=== PATIENT | male | born 1945 | race Caucasian/White ===

== ENCOUNTER → 2018-04-19 | Outpatient (CLI) | payer OTHER, MEDICARE | LOC: CIMAGING 11:32 | PROVIDERS: ATTEND Family Medicine | DX: S63.111A Subluxation of metacarpophalangeal joint of right thumb, initial encounter (principal) | CPT/HCPCS: 73110-PO ==

== ENCOUNTER 2018-09-09 12:48 | Emergency (ER) | payer OTHER, MEDICARE ==
[2018-09-09] MEDS ORDERED: NS 500 ML IV ONE (12:57)
[2018-09-09] MEDS ORDERED: IPRATROPIUM/ALBUTEROL 3 ML DEYVIAL IH ONE (12:57)
[2018-09-09 13:00] VITALS: BP 163/93
--- NOTE | 2018-09-09 13:40 | EDPHY ---
H & P Time Seen by Provider: 09/09/18 12:55 HPI/ROS: HPI Chronic shortness of breath. Coughed up some blood this morning. 72-year-old male by private vehicle. This patient has a formal diagnosis of mild COPD. He reports that for months if not years he has had shortness of breath and dyspnea made worse with exertion. He has been seen and evaluated at [facility]. He has also been [facility] and evaluated through [facility]. He has not been given a formal diagnosis. He states that he has been evaluated for pulmonary embolism as well as heart failure. His evaluations and testing have produce no formal diagnosis for his ongoing shortness of breath. He reports that this morning he had an episode of coughing and coughed up some blood which was mixed with sputum. He has not had any coughing since. He denies having any unusual shortness of breath that is worse than what he is had over the last 6 months. He denies fever. ROS: Constitutional: No fever, no chills. No weakness. Eyes: No discharge. No changes in vision. ENT: No sore throat. No nasal congestion or rhinorrhea. Respiratory: As above. Cardiac: No chest pain, no palpitations. Gastrointestinal: No abdominal pain, no vomiting, no diarrhea. Genitourinary: No hematuria. No dysuria or increased frequency with urination. Musculoskeletal: No back pain. No neck pain. No myalgias or arthralgias. Skin: No rashes. Neurological: No headache. No focal weakness or altered sensation. Past medical history: Obstructive sleep apnea which she uses BiPAP at night for , as above, multiple orthopedic surgeries, COPD, hypertension, prostate cancer with radiation treatment. Social history: Former smoker. Used to work as a [employer]. He is currently here by himself. No alcohol. Physical Exam: General Appearance: Alert, no distress. This patient is responding to questions appropriately and in full sentences. This patient appears well- hydrated and well-nourished. Eyes: Pupils equal and round no pallor or injection. No lid edema, erythema or injection. ENT, Mouth: Mucous membranes are moist. The pharyngeal tissues are unremarkable. No edema or swelling. No asymmetry suggestive of abscess. No erythema or exudates. No voice changes. No stridor on auscultation of his neck. No cervical, submandibular, submental lymphadenopathy. Respiratory: There are no retractions, lungs are clear to auscultation with good air movement bilaterally. No tachypnea. Cardiovascular: Regular rate and rhythm. No murmur. Neurological: Motor sensory function is grossly intact. Cranial nerves are normal. Gait is normal. Skin: Warm and dry, no rashes. Musculoskeletal: Neck is supple and nontender. Extremities are symmetrical. All joints range without pain or impingement. Psychiatric: No agitation. No depression. Database: EKG: Imaging: Chest x-ray PA and lateral; the cardiac mediastinal silhouette is unremarkable. No evidence of infiltrate or pneumothorax. Changes associated with COPD. No other acute cardiopulmonary disease process noted. Interpreted by me. Procedures: Emergency department course: Triage vital signs reviewed. He is moderately hypertensive. Vital signs are otherwise normal. No fever. Room air pulse oximetry is 96%. This patient appears very relaxed and well. I feel he most likely had a isolated coughing episode may have burst some capillaries in his posterior pharynx and had some blood mixed in with his sputum. 1:55 p.m., patient re-evaluated, I discussed the results of his chest x-ray with him. He is not dyspneic. He is completely asymptomatic. I explained that we could work him up much further. He does not want this done at this time. He is asking for referral to a instructor robotics. His instructor robotics has retired. This was Dr. Le. I feel this is reasonable. He can easily return to the emergency department if his condition worsens. He has had ongoing dyspnea, worse with exertion for months now on thorough investigation of this. I discussed follow-up with him. Return to emergency department precautions were thoroughly reviewed. All of his questions were answered. He was discharged from the emergency department in good condition. Differential Diagnosis: The differential diagnosis on this patient includes but is not limited to bronchitis. Tuberculosis, pulmonary embolism, congestive heart failure exacerbation, pneumonia, serious bacterial infection unlikely. This represents a partial list of diagnoses considered. These considerations are based on history, physical exam, past history, reassessment and diagnostic testing. Smoking Status: Never smoked Constitutional: Initial Vital Signs Temperature (C) 36.6 C 09/09/18 12:54 Heart Rate 64 09/09/18 12:54 Respiratory Rate 16 09/09/18 12:54 Blood Pressure 163/93 H 09/09/18 12:54 O2 Sat (%) 96 09/09/18 12:54 O2 Delivery Mode Room Air Allergies/Adverse Reactions: No Known Allergies Allergy (Verified 09/09/18 13:01) Home Medications: Medication Instructions Recorded Aspirin 81mg (*) 02/28/18 Lisinopril 02/28/18 Ursodiol 02/28/18 amLODIPine BESYLATE [Norvasc 10 mg 10 mg PO DAILY #60 tab 02/28/18 (*)] Medical Decision Making - Diagnostics Imaging Results: Imaging Impressions Chest X-Ray 09/09/18 12:58 Impression: Underlying hyperinflation compatible with COPD, associated with bilateral lower lung interstitial thickening, without acute abnormality.. Departure - Departure Disposition: Home, Routine, Self-Care Clinical Impression: Dyspnea, Cough with hemoptysis Condition: Good Instructions: Hemoptysis (ED), Dyspnea (ED) Additional Instructions: Read and follow provided instructions. Follow-up with pulmonology, Dr. Juan Carlos Dudley, as discussed for re-evaluation and ongoing management of your shortness of breath. Call his office this afternoon to schedule an appointment. Explain this is for an emergency department follow- up. Take your medication as prescribed. Return to the emergency department for worsening symptoms, worsening shortness of breath, coughing up blood, fever, chest pain or other serious concerns. Referrals: Williams Dudley MD [Medical Doctor] - As per Instructions
== END 2018-09-09 13:50 | disposition home or self-care (01) ==
LOC: CED 12:48
DX: R04.2 Hemoptysis (principal); R06.00 Dyspnea, unspecified; J44.9 Chronic obstructive pulmonary disease, unspecified; G47.33 Obstructive sleep apnea (adult) (pediatric); I10 Essential (primary) hypertension; Z85.46 Personal history of malignant neoplasm of prostate; Z92.3 Personal history of irradiation; Z87.891 Personal history of nicotine dependence
CPT/HCPCS: 71046-PO; 99284-ER

== ENCOUNTER → 2018-11-28 | Outpatient (CLI) | payer OTHER, MEDICARE | LOC: BHFA 14:00 | PROVIDERS: ATTEND Internal Medicine Cardiovascular Disease | DX: I44.7 Left bundle-branch block, unspecified (principal); R06.02 Shortness of breath | CPT/HCPCS: 78452; 93017; A9500; J2785 ==

== ENCOUNTER → 2018-12-14 | Outpatient (CLI) | payer OTHER, MEDICARE | LOC: BHCLAF 10:00 | PROVIDERS: ATTEND Internal Medicine Interventional Cardiology | DX: R06.02 Shortness of breath (principal); I10 Essential (primary) hypertension; R09.89 Other specified symptoms and signs involving the circulatory and respiratory systems | CPT/HCPCS: 93306-PO; 93880-PO ==